=== PATIENT | male | born 1975 | race Caucasian/White ===

== ENCOUNTER → 2017-04-04 | Outpatient (CLI) | payer OTHER ==
--- NOTE | 2017-04-05 02:41 | PAIN ---
DATE OF SERVICE: INITIAL CONSULTATION FOR PAIN CLINIC CHIEF COMPLAINT: Neck and left upper extremity pain. HISTORY OF PRESENT ILLNESS: This is a 42-year-old male with a history of pain since middle of December of this year, but going on for about a year from last 01/2016. The patient reports that he was doing some bench pressing at the time last year and felt a popping sound and had some immediate burning in the base of his neck and left shoulder posteriorly with radiation into his left upper extremity. The patient reports that the arm has gotten better with time, but still has some significant pain in the back of the neck and shoulder, also causes him headaches in the left side of the neck as well as the left side of the head posterior to the ear. The patient reports occasional radiating pain or shooting pain into his left arm, but only occasional. The patient reports that the pain is constant in the neck and shoulder posteriorly and anteriorly - in the anterior shoulder, throbbing, radiating into the arm. It is worse with activity upon using her left upper extremity with repetitive motions such as driving, lifting items, or weights. The patient has tried chiropractic treatment as well as physical therapy, which he reports did help and the cervical traction helped the pain decrease to a fair extent. He had 6 treatments of this, but was only getting to about a 50% improvement overall and stopped the treatment at that point. The patient reports no loss of motor function. No symptoms on the right upper extremity. The patient did have an MRI scan of the cervical spine, which was done ____ on 02/04/2017, showing a broad-based posterior disk osteophyte complex at C5-6 with [id number] bilateral neuroforaminal narrowing. The patient reports awakening from sleep occasionally, but not every night. It does not affect his bowel or bladder control or ability to walk, but even daily activities are becoming more difficult such as getting dressed, using his left arm or hand above his head, reaching, and even driving the car. The patient reports that he has taken Flexeril as well as Naprosyn, both of which helped to a mild extent. The patient reports his disability, rating from 0 to 10, 10 being the worst - it is a 5 to an 8 on family and home responsibilities, 5-7 with social activity, 5-8 on occupation and sexual behavior, 4-6 on self-care, and 5-6 on life-support activities. PAST MEDICAL HISTORY: Significant for some arthritis and chewing tobacco use. No previous surgeries. The patient has been generally in good health otherwise. CURRENT MEDICATIONS: Include temazepam for sleep, Flexeril, Naprosyn, Valium, and ____. ALLERGIES: THE PATIENT HAS SIGNIFICANT SEASONAL ALLERGIES, but no known drug allergies. FAMILY HISTORY: Significant for a history of cancer, but unsure what type. SOCIAL HISTORY: The patient does not smoke, does use chewing tobacco. Very rare, occasional alcohol use. 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 REVIEW OF SYSTEMS: The patient's review of systems is positive for those items mentioned in the history of present illness. All systems are reviewed and otherwise negative. It is complete, full, and well-documented on the patient's chart. PHYSICAL EXAMINATION: VITAL SIGNS: Today, the patient's blood pressure is 149/98, pulse is 71, respirations are 20, and temperature is 98.5 degrees Fahrenheit. Height is 72 inches, weight is 205 pounds. GENERAL: The patient is awake, alert, oriented, and appropriate, very pleasant demeanor. HEENT: Head shows normocephalic, atraumatic. Extraocular movements are intact and symmetrical. Oral cavity: Mucous membranes are moist and pink. Dentition is intact. NECK: Shows anterior throat supple without palpable lymphadenopathy noted. Swallow reflex is symmetrical. CHEST: Shows normal on inspection. Breath sounds are clear to auscultation bilaterally. HEART: Shows S1 and S2 clear. ABDOMEN: Soft, nontender, and nondistended. No palpable organomegaly. No rebound or guarding demonstrated. BACK: Shows spine grossly midline, normal-appearing cervical lordotic curvature, thoracic kyphotic curvature, and lumbar lordotic curvature. The patient's cervical lordotic curvature appears normal. With palpation, shows some tenderness in the inferior aspect of the cervical paraspinous musculature, more on the left than the right with palpation, but without asymmetry. No trigger points and no radiation of pain demonstrated. The patient's neck shows good rotational motion with some minor pain reported in the base of the neck and left shoulder with far left lateral rotation, but not with right lateral rotation, also with extension in the base of the neck on the left side, without radiation to the arm and relieved with forward flexion. Upper extremity showed deep tendon reflexes 2+ in the biceps and triceps tendons. 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 Peripheral pulses are 2+ in the radial distribution. No peripheral edema is noted. No clubbing, no cyanosis. Upper extremities are warm and dry to touch, equal in color and appearance. Shoulder shrug is strong and intact without loss of strength on resistance and without loss of strength on resistance with abduction of shoulder to 90 degrees without significant pain reported. IMPRESSION: 1. This is a 42-year-old male with about a year and a 2-month history of pain in the base of the neck and left upper extremity in a radicular fashion. 2. MRI scan of cervical spine as noted. 3. Arthritis history. 4. Chewing tobacco use. PLAN: Options were discussed with the patient including conservative medical management, physical therapy, and interventional technique. He would like to pursue with interventional techniques. We discussed a cervical epidural steroid injection, using description as well as anatomical models to describe the procedure. As the patient has been doing chiropractic as well as cervical traction and physical therapy without significant improvement, we would like to proceed with a cervical epidural steroid injection. We will have the patient return once preauthorization is obtained and plan on cervical epidural steroid injection at that time. JENNIFER DE LA VEGA MD DR: FELICE/albin JOB#: [id number] / [id number]
== END | disposition home or self-care (01) ==
LOC: PNCL 13:41
PROVIDERS: ATTEND Anesthesiology
DX: M54.2 Cervicalgia (principal); M79.602 Pain in left arm
CPT/HCPCS: 99214

== ENCOUNTER → 2017-04-22 | Outpatient (CLI) | payer OTHER ==
[~2017-04-22] MED LIST: ASCO500C PO; CYCL10TA2 PO; IOHEXOL 180 MG/ML 10 ML VIAL. ONE; NAPR375T3 PO; TEMA30CA PO; [UNRECOGNIZED DRUG - OTHER]; methylPREDNISolone ACETATE 40 MG/ML VIAL. ONE; methylPREDNISolone ACETATE 80 MG/ML VIAL. ONE
--- NOTE | 2017-04-22 23:41 | PN ---
DATE: 04/22/2017 DIAGNOSES: Cervical radiculopathy with cervical degenerative disk disease. HISTORY OF PRESENT ILLNESS: The patient is a 42-year-old male who returns for followup status post initial evaluation and preauthorization for cervical epidural steroid injection. The patient returns reporting still significant pain in the base of the neck, in the left shoulder and arm as it was previously rated as 8 on a scale of 10 at its worst and currently 4 today. The patient reports still significant pain. No new changes. It is tingling, cramping, stabbing, and constant. The patient reports no new motor loss or other complaints. PHYSICAL EXAMINATION: VITAL SIGNS: The patient's blood pressure is 137/96, pulse 76, respirations 20, temperature is 98.3 degrees Fahrenheit, height is 73 inches. GENERAL: The patient is awake, alert, oriented, appropriate, very pleasant demeanor. HEENT: Head shows normocephalic, atraumatic. Extraocular movements are intact and symmetrical. Oral cavity shows mucous membranes moist and pink. Dentition is intact. NECK: Shows anterior throat supple. CHEST: Shows breath sounds clear to auscultation bilaterally. HEART: Shows S1 and S2 clear. ABDOMEN: Soft, nontender, nondistended. BACK: Shows spine grossly midline. Cervical paraspinous muscle shows some mild tenderness, but is symmetrical only with palpation in the inferior aspect of the cervical paraspinous muscles and superior medial aspect of the trapezius bilaterally, but without radiation without trigger points without asymmetry. The patient shows good rotational motion of the spine, both laterally as well as extension and flexion. EXTREMITIES: Upper extremities showed deep tendon reflexes 2+ in the biceps and triceps tendons. 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 Options were discussed with the patient and the patient's old chart was reviewed as his current medication regimen updated. Current review of systems updated today as well. We will proceed with a cervical epidural steroid injection today with fluoroscopic guidance. Risks were again discussed including, but not limited to bleeding, infection, possibility of epidural hematoma, subsequent neurological compromise, dural punctures, headaches, spinal cord and/or nerve damage, side effects of steroid medication and poor results regarding pain control. The patient understands and wishes to proceed. The patient will return to clinic in approximately 2 weeks for followup, was counseled on return appointment, activity level and side effects to be aware of. DIAGNOSIS: Cervical radiculopathy with cervical degenerative disk disease. PROCEDURE: Cervical epidural steroid injection in translaminar approach at the C6-C7 level with C-arm fluoroscopic guidance under sterile prep and drape using local anesthetic. Medication injected is total of 120 mg Depo-Medrol plus 5 mL of preservative-free normal saline and 2 mL of Isovue for contrast. CONDITION AT DISCHARGE: Stable. The patient tolerated procedure well, had no complications. JENNIFER DE LA VEGA MD DR: FELICE/albin JOB#: [id number] / [id number]
== END | disposition home or self-care (01) ==
LOC: PNCL 08:08
PROVIDERS: ATTEND Anesthesiology
DX: M50.123 Cervical disc disorder at C6-C7 level with radiculopathy (principal)
CPT/HCPCS: 62321; J1030; J1040

== ENCOUNTER → 2017-05-06 | Outpatient (CLI) | payer OTHER ==
--- NOTE | 2017-05-07 02:03 | PAIN ---
DATE OF SERVICE: 05/06/2017 PROGRESS NOTE FOR PAIN CLINIC DIAGNOSES: Cervical radiculopathy with cervical degenerative disk disease. HISTORY OF PRESENT ILLNESS: The patient is a 42-year-old male who returns for followup status post cervical epidural steroid injection x 1. The patient reports about 50% improvement after first injection, has still some pain in the left shoulder and base of the neck, but much improved. The patient reports the pain does appear for a few days ____ and then gradually has returned, but only about 50% of his current level. The patient reports it as a 5 on a scale of 10 at most of the day and it can be as high as a 7, but is currently 1 on a scale of 10. The patient reports no new motor or sensory deficits, describes the pain as tingling, cramping, stabbing and off and on in intensity, is not completely constant as it was previously, still in the base of the neck and into the left shoulder, but not as much into the left arm. The patient reports it does not awaken him from sleep at night, he feels better with lying down or sitting, worse with ____ action with the left shoulder, arm ____, driving a car, sitting upright using his arms over his head. PHYSICAL EXAMINATION: VITAL SIGNS: Today, the patient's blood pressure is 130/85, pulse 67, respirations 18, temperature 98.4 degrees Fahrenheit, height is 72 inches, weight is 205 pounds. GENERAL: The patient is awake, alert, oriented, appropriate, very pleasant demeanor. HEENT: Head shows normocephalic, atraumatic. Extraocular movements are intact and symmetrical. Oral cavity shows mucous membranes moist and pink. Dentition is intact. NECK: Shows anterior throat supple with palpable lymphadenopathy noted. Swallow reflex is symmetrical. CHEST: Shows normal on inspection. Breath sounds clear to auscultation bilaterally. HEART: Shows S1 and S2 clear. ABDOMEN: Soft, nontender, nondistended. BACK: Shows spine grossly in the midline. Cervical paraspinous muscle shows some very mild tenderness with palpation in the inferior aspect of the cervical paraspinous muscles and superior medial trapezius on the left, but not on the right. It appears symmetrical on inspection, but no specific radiation, no difficulty with rotation of motion, full with extension and flexion as well as right and left lateral rotation without limitation. EXTREMITIES: Upper extremities showed deep tendon reflexes 2+ in the biceps and triceps tendons. 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 Options were discussed with the patient, the patient's old chart was reviewed as his current medication regimen updated. Current review of systems updated today as well. We will proceed with a second in this series of cervical epidural steroid injection with fluoroscopic guidance. Risks were again discussed including, but not limited to bleeding, infection, possibility of epidural hematoma, subsequent neurological compromise, dural punctures, headaches, spinal cord and/or nerve damage, side effects of steroid medications and poor results regarding pain control. The patient understands and wishes to proceed. The patient will return to clinic in approximately 2 weeks for followup, was counseled on return appointment, activity level and side effects to be aware of. DIAGNOSES: Cervical radiculopathy with cervical degenerative disk disease. PROCEDURE: Cervical epidural steroid injection in translaminar approach at the C6-C7 level using C-arm fluoroscopic guidance under sterile prep and drape using local anesthetic. MEDICATIONS INJECTED: 120 mg of Depo-Medrol plus 5 mL of preservative-free normal saline and 2 mL of Isovue for contrast. CONDITION AT DISCHARGE: Stable. The patient tolerated the procedure well, had no complications. JENNIFER DE LA VEGA MD DR: FELICE/albin JOB#: [id number] / [id number]
== END | disposition home or self-care (01) ==
LOC: PNCL 08:11
PROVIDERS: ATTEND Anesthesiology
DX: M50.123 Cervical disc disorder at C6-C7 level with radiculopathy (principal)
CPT/HCPCS: 62321; J1030; J1040